=== PATIENT | female | born 1970 | race African-American/Black ===

== ENCOUNTER 2017-09-26 22:46 | Emergency (ER) | payer SELFPAY ==
[2017-09-27] MEDS ORDERED: diphenhydrAMINE 25 MG CAP ONE ×2 (00:15→00:18)
[2017-09-27] MEDS ORDERED: cloNIDine 0.1 MG TAB ONE (00:16)
== END 2017-09-27 00:26 | disposition home or self-care (01) ==
LOC: ERS 22:46
DX: I11.0 Hypertensive heart disease with heart failure (principal); I50.9 Heart failure, unspecified; R51 Headache; F41.9 Anxiety disorder, unspecified; Z79.899 Other long term (current) drug therapy; Z79.82 Long term (current) use of aspirin
CPT/HCPCS: 99283